=== PATIENT | female | born 1985 | race Caucasian/White ===

== ENCOUNTER → 2022-02-26 11:37 | Outpatient (BNVA) | payer MEDICAID, SELFPAY | PROVIDERS: Visit Provider Nurse Practitioner Family | DX: N30.90 Cystitis, unspecified without hematuria (principal) | CPT/HCPCS: 81000; 87086 ==

== ENCOUNTER → 2022-03-17 09:18 | Outpatient (BNVA) | payer MEDICAID, SELFPAY | PROVIDERS: Visit Provider Family Medicine | DX: Z30.9 Encounter for contraceptive management, unspecified (principal); I10 Essential (primary) hypertension; J45.909 Unspecified asthma, uncomplicated; M76.32 Iliotibial band syndrome, left leg; M70.62 Trochanteric bursitis, left hip; Z86.39 Personal history of other endocrine, nutritional and metabolic disease; M79.7 Fibromyalgia; Z68.41 Body mass index [BMI] 40.0-44.9, adult | CPT/HCPCS: 80053; 80061; 84439; 84443; 85025; 86376 ==

== ENCOUNTER → 2022-04-14 09:05 | Outpatient (BNVA) | payer MEDICAID, SELFPAY | PROVIDERS: PCP Family Medicine; Visit Provider Nurse Practitioner Women's Health | DX: R10.2 Pelvic and perineal pain (principal); Z12.4 Encounter for screening for malignant neoplasm of cervix; N89.8 Other specified noninflammatory disorders of vagina; Z30.41 Encounter for surveillance of contraceptive pills | CPT/HCPCS: 87491; 87591; 87624; 87661 ==

== ENCOUNTER → 2022-04-29 14:31 | Outpatient (BNVA) | payer MEDICAID, SELFPAY | PROVIDERS: PCP Family Medicine; Visit Provider Nurse Practitioner Women's Health | DX: R10.2 Pelvic and perineal pain (principal); N85.4 Malposition of uterus | CPT/HCPCS: 76830 ==

== ENCOUNTER 2022-06-05 14:27 | Outpatient (CLI) | payer MEDICAID, SELFPAY ==
--- NOTE | 2022-06-05 14:35 | MM_ITS ---
WS: [id number] BILATERAL 3D TOMOSYNTHESIS DIGITAL SCREENING MAMMOGRAPHY WITH CAD CLINICAL INFORMATION: breast Ca screening HISTORY: Screening mammogram. Bilateral breast pain and soreness. COMPARISON: 2020 TECHNIQUE: Bilateral CC and MLO views. FINDINGS: Scattered fibroglandular densities bilaterally. No suspicious focal mass, asymmetry, calcifications, or architectural distortion. No evidence of malignancy. MM/[place] [id number] IMPRESSION: BI-RADS: 1-Negative FOLLOW UP: 1 Year Follow-up Recommend return to annual screening mammography.
== END 2022-06-05 14:28 | disposition home or self-care (01) ==
LOC: RAD 14:28
PROVIDERS: PCP Family Medicine; Visit Provider Family Medicine
DX: Z12.31 Encounter for screening mammogram for malignant neoplasm of breast (principal)
CPT/HCPCS: 77063; 77067

== ENCOUNTER → 2022-07-12 10:23 | Outpatient (BNVA) | payer MEDICAID, SELFPAY | PROVIDERS: PCP Family Medicine; Visit Provider Registered Nurse Neonatal Intensive Care | DX: N39.0 Urinary tract infection, site not specified (principal) | CPT/HCPCS: 81000; 87077; 87086; 87184 ==

== ENCOUNTER → 2022-07-21 09:10 | Outpatient (BNVA) | payer MEDICAID, SELFPAY | PROVIDERS: PCP Family Medicine; Visit Provider Family Medicine | DX: R30.0 Dysuria (principal); R73.03 Prediabetes; B37.9 Candidiasis, unspecified; E06.3 Autoimmune thyroiditis; R10.2 Pelvic and perineal pain; I10 Essential (primary) hypertension; M79.7 Fibromyalgia; M54.2 Cervicalgia | CPT/HCPCS: 81000; 83036 ==

== ENCOUNTER 2022-10-10 07:56 | Outpatient (CLI) | payer MEDICAID, SELFPAY ==
--- NOTE | 2022-10-10 08:15 | US_ITS ---
WS: [id number] THYROID ULTRASOUND HISTORY: nodules COMPARISON: None available. Right lobe: 2.9 cm x 2.5 cm x 6.7 cm (w x ap x l). Volume: 25.0 cm3. Enlarged heterogeneous thyroid gland with multiple nodules. These nodules are diffuse and several are indistinct. There is increased vascularity throughout the gland. There is a hyperechoic nodule in th e mid gland measuring 9 x 8 x 9 mm. There is a more hypoechoic nodule towards the RIGHT isthmus measu ring 9 x 6 x 10 mm. These nodules have more benign features and malignant. There are a few scattered echogenic foci throughout the heterogeneous portion of the gland. Left lobe: 2.1 cm x 2.0 cm x 6.3 cm (w x ap x l). Volume: 13.9 cm3. Mildly enlarged heterogeneous gland mild increased vascularity. There is a single hypoechoic nodule i n the mid gland measuring 5 x 3 x 6 mm. Isthmus: 0.6 cm. US/US thyroid [id number] IMPRESSION: 1. Diffusely enlarged heterogeneous gland with increased vascularity suggestin g Carol's thyroiditis. There are several nodules noted bilaterally but thes e are 10 mm or less. Scattered hyperechoic foci throughout the RIGHT thyroid bu t these are not contained within nodules. 2. Recommend continue close serial ultrasound and clinical evaluation. 3. As per history patient's undergone a prior thyroid biopsy. That was not bhakti ilable for review at [facility]. Review of prior imaging studies would be most helpful to evaluate for long-term stability.
== END 2022-10-10 07:57 | disposition home or self-care (01) ==
PROVIDERS: PCP Family Medicine; Visit Provider Internal Medicine
DX: E06.3 Autoimmune thyroiditis (principal)
CPT/HCPCS: 76536

== ENCOUNTER 2022-11-16 07:18 | Outpatient (CLI) | payer MEDICAID, SELFPAY ==
[2022-11-16 08:03] LABS: Free T4 Free Thyroxine 1.14 ng/dL (0.82-1.77); Thyroid Stimulating Hormone 2.41 uIU/mL (0.27-4.20)
[2022-11-16 08:09] LABS: Estmated Average Glucose 114; Hemoglobin A1C 5.6 % (4.0-6.0)
[2022-11-20 04:00] LABS: TSH Receptor Binding Antibody <1.00 IU/L (< OR = 2.00)
== END 2022-11-16 07:19 | disposition home or self-care (01) ==
LOC: LAB 07:19
PROVIDERS: PCP Family Medicine; Visit Provider Internal Medicine
DX: E06.3 Autoimmune thyroiditis (principal)
CPT/HCPCS: 36415; 83036; 83516; 84439; 84443

== ENCOUNTER → 2022-11-26 08:52 | Outpatient (BNVA) | payer MEDICAID, SELFPAY | PROVIDERS: PCP Family Medicine; Visit Provider Family Medicine | DX: R10.2 Pelvic and perineal pain (principal); R30.0 Dysuria; B37.9 Candidiasis, unspecified | CPT/HCPCS: 81000 ==

== ENCOUNTER 2023-05-23 09:25 | Outpatient (CLI) | payer MEDICAID, SELFPAY ==
[2023-05-23 10:05] LABS: Free T4 Free Thyroxine 1.16 ng/dL (0.82-1.77); Thyroid Stimulating Hormone 1.79 uIU/mL (0.27-4.20)
== END 2023-05-23 09:26 | disposition home or self-care (01) ==
PROVIDERS: PCP Family Medicine; Visit Provider Internal Medicine
DX: E06.3 Autoimmune thyroiditis (principal)
CPT/HCPCS: 36415; 84439; 84443

== ENCOUNTER 2023-05-27 06:01 | Outpatient (CLI) | payer MEDICAID, SELFPAY ==
--- NOTE | 2023-05-27 06:15 | US_ITS ---
WS: [id number] THYROID ULTRASOUND HISTORY: fady's disease COMPARISON: 10/10/2022 Right lobe: 3.6 cm x 2.2 cm x 6.4 cm (w x ap x l). Volume: 26.1 cm3. Enlarged very heterogeneous thyroid with multiple small hypoechoic nodules in fibrous echogenic septa . There is mild increased vascularity. Hyperechoic nodule in the mid gland is well-circumscribed jackelyn uring 0.9 x 0.9 x 1.0 cm. Not changed since the prior exam. Additional cystic nodule toward the mid m edial gland measures 1.2 x 0.8 x 1.2 cm. These nodules are not increasing in size. There is still inc reased vascularity throughout the gland. Left lobe: 2.5 cm x 2.0 cm x 6.4 cm (w x ap x l). Volume: 16.6 cm3. Moderately enlarged thyroid with increased vascularity and heterogeneity. There are multiple small hy poechoic nodules. Isthmus: 0.3 cm. IMPRESSION: 1. Enlarged heterogeneous gland with increased vascularity. 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 2. TI-RADS 3: Hyperechoic nodule in the mid RIGHT gland. TI-RADS criteria does not suggest further ev aluation unless greater than 1.5 cm. Benign in appearance.
== END 2023-05-27 06:02 | disposition home or self-care (01) ==
LOC: RAD 06:01
PROVIDERS: PCP Family Medicine; Visit Provider Internal Medicine
DX: E06.3 Autoimmune thyroiditis (principal)
CPT/HCPCS: 76536

== ENCOUNTER 2023-11-06 16:10 | Outpatient (CLI) | payer MEDICAID, SELFPAY ==
[2023-11-06 17:26] LABS: Free T4 Free Thyroxine 1.04 ng/dL (0.82-1.77); Thyroid Stimulating Hormone 2.47 uIU/mL (0.27-4.20)
[2023-11-09 01:40] LABS: T3 Total 116 ng/dL (76-181)
== END 2023-11-06 16:11 | disposition home or self-care (01) ==
PROVIDERS: PCP Family Medicine; Visit Provider Internal Medicine
DX: E06.3 Autoimmune thyroiditis (principal)
CPT/HCPCS: 36415; 84439; 84443; 84480

== ENCOUNTER → 2023-12-20 13:46 | Outpatient (BNVA) | payer MEDICAID, SELFPAY | PROVIDERS: PCP Family Medicine; Visit Provider Nurse Practitioner | DX: E04.2 Nontoxic multinodular goiter (principal); E06.3 Autoimmune thyroiditis; Z80.8 Family history of malignant neoplasm of other organs or systems; R73.03 Prediabetes | CPT/HCPCS: 83036; 84439; 84443 ==

== ENCOUNTER → 2023-12-23 16:35 | Outpatient (BNVA) | payer MEDICAID, SELFPAY | PROVIDERS: PCP Family Medicine; Visit Provider Nurse Practitioner | DX: R00.2 Palpitations (principal) | CPT/HCPCS: 80053; 84439; 84443; 85007; 85027 ==

== ENCOUNTER 2024-02-14 08:50 | Emergency (ER) | payer MEDICAID, SELFPAY ==
[2024-02-14 08:56] VITALS: BP 129/85; PULSE 106; RESP 16; TEMP 36.7; O2SAT 100; BMI 35.1
[2024-02-14 10:11] LABS: Basophils % 0.3 %; Eosinophils # 0.1 10^3/uL (0.0-0.8); Hematocrit 41.1 % (36-47); Lymphocytes # 2.6 10^3/uL (0.8-4.8); Lymphocytes % 34.8 %; Mean Corpuscular HGB Conc 33.1 g/dL (30-55); Mean Corpuscular Hemoglobin 29.2 pg (27-33); Mean Corpuscular Volume 88.2 fl (85-98); Mean Platelet Volume 10.6 fL (7.4-10.4); Monocytes # 0.5 10^3/uL (0.2-0.9); Monocytes % 7.2 %; Neutrophils # 4.14 10^3/uL (1.8-7.7); Neutrophils % 56.6 %; Nucleated Red Blood Cells % 0 %; Platelet Count 285 10^3/cmm (157-399); Red Blood Count 4.66 10^6/uL (3.85-5.65); Red Cell Distribution Width 12.4 % (12.1-15.1); White Blood Count 7.32 10^3/uL (3.29-11.43)
[2024-02-14 10:25] LABS: HCG, Serum Qual Negative (Negative)
[2024-02-14 10:28] LABS: Alanine Aminotransferase 11 U/L (0-33); Albumin Level 4.2 g/dL (3.5-5.2); Alkaline Phosphatase 75 U/L (35-105); Anion Gap 15.3 (5-19); Aspartate Amino Transferase 13 U/L (0-32); Blood Urea Nitrogen 11 mg/dL (6-20); Carbon Dioxide 26 mmol/L (22-29); Chloride 100 mmol/L (98-107); Creatinine Clr Calc Pharmacy 110.1719; Globulin 3.2 g/dL (1.3-4.6); Glomerular Filtration Rate 80.7 mL/min (90-130); Glucose 91 mg/dL (65-115); Lipase 24 U/L (13-60); Osmolality Calculated 283 mOsm/kg (285-295); Potassium 4.3 mmol/L (3.5-5.1); Sodium 137 mmol/L (136-145); Total Bilirubin 0.2 mg/dL (0.15-1.2); Total Protein 7.4 g/dL (6.6-8.7)
== END 2024-02-14 12:03 | disposition left against medical advice (07) ==
PROVIDERS: Physician Assistant; Emergency Provider Family Medicine; PCP Family Medicine
DX: Z53.21 Procedure and treatment not carried out due to patient leaving prior to being seen by health care provider (principal)
CPT/HCPCS: 36415; 80053; 83690; 84703; 85025

== ENCOUNTER 2024-02-21 15:16 | Outpatient (CLI) | payer MEDICAID, SELFPAY ==
--- NOTE | 2024-02-21 15:45 | USR_ITS ---
PROCEDURE INFORMATION: Exam: US Abdomen, Limited; Right Upper Quadrant Exam date and time: 02/21/2024 3:30 PM Age: 38 years old Clinical indication: Abdominal pain; Localized; Right upper quadrant (ruq); Additional info: Ruq pain TECHNIQUE: Imaging protocol: Real time ultrasound of the abdomen with image documentation. Limited exam focused on the right upper quadrant. COMPARISON: US transvaginal [id number] 04/29/2022 2:44 PM FINDINGS: Liver: Visualized hepatic parenchyma is mildly echogenic. The liver contour is grossly smooth. Gallbladder: There is cholelithiasis. No significant wall thickening or edema to suggest cholecystitis.The clinical trial educator reports a negative sonographic Tucker's sign. Biliary ducts: The CBD is nondilated, measuring 4 mm. No sonographic evidence of intraductal stone. Pancreas: The pancreas is mostly obscured bowel gas. Visualized portions are grossly unremarkable. Right kidney: The right kidney is normal in echotexture and measures 10.3 cm in length. No evidence of hydronephrosis. US/US gall bladder [id number] IMPRESSION: 1. Cholelithiasis without sonographic evidence of acute cholecystitis.
== END 2024-02-21 15:17 | disposition home or self-care (01) ==
LOC: RAD 15:17
PROVIDERS: PCP Family Medicine
DX: K80.20 Calculus of gallbladder without cholecystitis without obstruction (principal); R10.11 Right upper quadrant pain
CPT/HCPCS: 76705

== ENCOUNTER 2024-04-20 09:22 | Outpatient (CLI) | payer MEDICAID, SELFPAY ==
--- NOTE | 2024-04-20 09:30 | US_ITS ---
WS: [id number] THYROID ULTRASOUND HISTORY: multiple thyroid nodules COMPARISON: 05/27/2023, 10/10/2022 Right lobe: 2.9 cm x 2.7 cm x 6.6 cm (w x ap x l). Volume: 24.4 cm3. Enlarged heterogeneous nodular thyroid lobe. Increased vascularity throughout the gland. The hyperech oic nodule described on the prior examination measures 0.9 x 1.0 x 1.0 cm and has not increased in si ze. Left lobe: 2.4 cm x 2.3 cm x 5.9 cm (w x ap x l). Volume: 15.5 cm3. Enlarged heterogeneous LEFT lobe. Mild increased vascularity. Isthmus: 0.6 cm. US/US thyroid [id number] IMPRESSION: 1. Thyroid ultrasound is similar to the study of 05/27/2023. Suspect Carol 's thyroiditis. 2. There are no new or enlarging thyroid nodules for which biopsy is recommend ed.
== END 2024-04-20 09:23 | disposition home or self-care (01) ==
LOC: RAD 09:22
PROVIDERS: PCP Family Medicine; Visit Provider Internal Medicine
DX: E04.2 Nontoxic multinodular goiter (principal); Z80.8 Family history of malignant neoplasm of other organs or systems; E06.3 Autoimmune thyroiditis
CPT/HCPCS: 76536

== ENCOUNTER 2024-05-18 11:23 | Outpatient (CLI) | payer MEDICAID, SELFPAY ==
--- NOTE | 2024-05-18 11:30 | MM_ITS ---
WS: [id number] BILATERAL 3D TOMOSYNTHESIS DIGITAL DIAGNOSTIC MAMMOGRAPHY WITH CAD CLINICAL INFORMATION: breast pain, R HISTORY: RIGHT breast pain COMPARISON: 06/05/2022 TECHNIQUE: Bilateral CC, MLO, and ML views. FINDINGS: Scattered fibroglandular densities bilaterally. Areas of interest lower inner RIGHT breast extending to the sternum. Normal underlying parenchymal tissue. Ultrasound of this area is pending. No suspicious findings in the LEFT breast. ULTRASOUND BREAST RIGHT TECHNIQUE: Ultrasound right breast focused area of concern. CLINICAL INFORMATION: breast pain, R FINDINGS: Ultrasound RIGHT breast area of interest. Ultrasound performed at the 2 o'clock position patient dire cted. Normal underlying parenchymal tissue. No cystic or solid lesions. No suspicious lesions to targ et for biopsy. Findings are benign. MM/MM diag BI tomosynthesis [id number] IMPRESSION: DENSITY: There are scattered areas of fibroglandular density. BI-RADS: 2 - Benign. FOLLOW UP: Age 41 Recommend annual screening mammography age 41 unless otherwise warranted
--- NOTE | 2024-05-18 12:04 | US_ITS ---
WS: [id number] BILATERAL 3D TOMOSYNTHESIS DIGITAL DIAGNOSTIC MAMMOGRAPHY WITH CAD CLINICAL INFORMATION: breast pain, R HISTORY: RIGHT breast pain COMPARISON: 06/05/2022 TECHNIQUE: Bilateral CC, MLO, and ML views. FINDINGS: Scattered fibroglandular densities bilaterally. Areas of interest lower inner RIGHT breast extending to the sternum. Normal underlying parenchymal tissue. Ultrasound of this area is pending. No suspicious findings in the LEFT breast. ULTRASOUND BREAST RIGHT TECHNIQUE: Ultrasound right breast focused area of concern. CLINICAL INFORMATION: breast pain, R FINDINGS: Ultrasound RIGHT breast area of interest. Ultrasound performed at the 2 o'clock position patient dire cted. Normal underlying parenchymal tissue. No cystic or solid lesions. No suspicious lesions to targ et for biopsy. Findings are benign. US/US breast RT limited* [id number] IMPRESSION: DENSITY: BI-RADS: 2 - Benign. FOLLOW UP: Age 41 Recommend annual screening mammography age 41 unless otherwise warranted
== END 2024-05-18 11:24 | disposition home or self-care (01) ==
PROVIDERS: PCP Family Medicine; Visit Provider Family Medicine
DX: N64.4 Mastodynia (principal); R92.323 Mammographic fibroglandular density, bilateral breasts
CPT/HCPCS: 76642; 77062; G0279

== ENCOUNTER 2024-07-01 02:46 | Emergency (ER) | payer MEDICAID, SELFPAY ==
[2024-07-01 02:54] VITALS: BP 148/92; PULSE 111; RESP 18; TEMP 36.9; O2SAT 100; BMI 34.9
--- NOTE | 2024-07-01 03:04 | ECG_ITS ---
[facility] Test Date: 2024-07-01 Pat Name: Tia Soni Department: Room: Gender: Female Baker Doughnut: : 1985 Requested By: ARTEM Etienne Order Number: [id number] Kenneth MD: Jeremiah Wray M.D. Measurements Intervals [place] Rate: 124 P: 65 MN: 147 QRS: 31 QRSD: 78 T: 61 QT: 336 QTc: 483 Interpretive Statements SINUS TACHYCARDIA NONSPECIFIC ST & T-WAVE ABNORMALITY No previous ECG available for comparison Electronically Signed On 07-01-2024 23:05:37 ACTUARIAL CLERK by Jeremiah Wray M.D. [email or web address]
--- NOTE | 2024-07-01 03:04 | XRR_ITS ---
PROCEDURE INFORMATION: Exam: XR Chest Exam date and time: 07/01/2024 3:34 AM Age: 38 years old Clinical indication: Chest pressure; Patient HX: C/O chest pain; Additional info: Cp TECHNIQUE: Imaging protocol: Radiologic exam of the chest. Views: 1 view. COMPARISON: No relevant prior studies available. FINDINGS: Lungs: Unremarkable. No consolidation. Pleural spaces: Unremarkable. No pleural effusion. No pneumothorax. Heart/Mediastinum: Unremarkable. No cardiomegaly. Bones/joints: Unremarkable. XR/XR chest 1V portable [id number] IMPRESSION: No acute findings.
[2024-07-01 03:16] VITALS: BP 141/92; PULSE 94; O2SAT 100
--- NOTE | 2024-07-01 03:17 | ED_ITS ---
HPI - Chest Pain 2 General: Chief Complaint: Chest Pain Stated Complaint: R side Pain chest pain Time Seen by Provider: 07/01/24 03:15 History of Present Illness: Patient presents with right-sided chest and back pain that started approximately 12-13 hours ago. The pain is described as having a contractile quality, with periods of worsening followed by partial relief. Associated symptoms include nausea and notable tremors due to pain. Patient reports history of gallstones but states current pain differs from previous gallbladder episodes. Denies fever. No alcohol or drug use reported. Past Medical History: Significant for pancreatitis and thyroid condition (reportedly normal for past couple of years). Associated symptoms: Deny dyspnea or palpitations Related Data Previous Rx's Medication Instructions Recorded albuterol sulfate 90 mcg/actuation 1 inh inhalation QID PRN shortness 03/17/22 aerosol inhaler of breath or wheezing #8.5 grams drospirenone (contraceptive) 4 mg 1 tab PO DAILY #28 tabs 03/03/24 (28) tablet (Slynd) furosemide 20 mg tablet 20 mg PO QAM PRN lower extremity 04/20/24 edema #30 tabs liraglutide 0.6 mg/0.1 mL (18 mg/3 1.8 mg (0.3 mL) SUBCUT DAILY 30 04/20/24 mL) subcutaneous pen injector days #27 mL (Victoza 3-Watson) fluconazole 100 mg tablet 100 mg PO DAILY #1 tab 05/22/24 (Diflucan) Allergies Allergy/AdvReac Type Severity Reaction Status Date / Time No Known Allergies Allergy Verified 05/22/24 15:28 Review of Systems 2 Card: Reports: chest pain; Denies: palpitations, irregular heart rhythm, swelling of feet/ankles, lightheadedness, dyspnea on exertion or orthopnea Resp: Denies: dyspnea or productive cough PFSH ED 2 PFSH: Medical History No pertinent past medical history neghx: dm,dvt/pe PCP: Zachary Hypertension Asthma Fibromyalgia H/O Carol thyroiditis (~2019) Newly moved here; set up with [facility] Surgical History H/O LEEP (~2006) Family History Mother Cancer thyroid Hypertension Stroke Heart disease Thyroid disease Grandfather Cancer lung Hypertension Grandmother Diabetes Hypertension Father Hypertension Brother No problems noted. Denies family history of Colon cancer Ovarian cancer Hyperlipidemia Breast cancer Uterine cancer Social History Smoking and tobacco/nicotine status: unknown if used tobacco/nicotine Alcohol intake: never Substance/Drug Use: never Do you think of yourself as: Straight/Heterosexual Female Reproductive History: Para: 4 Spontaneous abortions: No Physical Exam 2 Const: COMMON NORMALS: no acute distress, patient oriented x3, alert and well nourished HENMT: COMMON NORMALS: normocephalic HEAD & SCALP: normocephalic Eye: COMMON NORMALS: EOMs intact bilaterally Neck/C-Spine: COMMON NORMALS: full ROM, no lymphadenopathy, supple, no meningeal signs, no JVD and Thyroid normal THYROID: Thyroid normal Chest: COMMONS NORMALS: normal inspection of the chest and normal palpation of entire chest wall Resp: COMMON NORMALS: normal respiratory effort, No retractions, No use of accessory muscles and clear to auscultation bilaterally AUSCULTATION: clear to auscultation bilaterally Cardio: COMMON NORMALS: no JVD GI: COMMON NORMALS: Normal to inspection, nondistended, normoactive bowel sounds present, Soft to palpation, non-tender, No hepatosplenomegaly present, no masses and no bruits PALPATION: Yes Soft to palpation and Yes No hepatosplenomegaly present : COMMON NORMALS: Yes no CVA tenderness BLADDER/KIDNEY EXAM: Yes no CVA tenderness Back/Pelvis: COMMON NORMALS: no CVA tenderness Extremity: COMMON NORMALS: normal to inspection, full ROM, capillary refill normal, no joint enlargement, no clubbing, cyanosis or edema, no calf tenderness and no pedal edema Neuro: COMMON NORMALS: patient oriented x3 SENSORIUM/ORIENTATION: Yes alert MENINGEAL SIGNS: Yes no meningeal signs Skin: COMMON NORMALS: no rashes or lesions noted, turgor normal and no jaundice GENERAL SKIN EXAM: no rashes or lesions noted and turgor normal Course 2 ED course: Patient's heart rate was normal she felt significantly better after intervention the emergency department her symptoms resolved. Workup including troponin was negative. She had normal vital signs at 4:00 and was discharged home in much improved condition after being ruled out for serious etiology of her symptoms. Vital Signs: Vital signs: Vital Signs Temperature 98.4 F 07/01/24 02:54 Pulse Rate 89 07/01/24 04:13 Respiratory Rate 20 H 07/01/24 03:51 Blood Pressure 119/94 07/01/24 04:13 Pulse Oximetry 97 07/01/24 04:13 Oxygen Delivery Me thod Room Air 07/01/24 03:51 MDM - Chest Pain Medical Decision Making Discussed differential diagnosis recommend full workup including to evaluate for acute coronary syndrome, arrhythmia or other more serious etiology. She is not hypoxic I think pulmonary embolism is less likely. Lab Data 07/01/24 03:00 07/01/24 03:00 Radiology Impressions Chest X-Ray 07/01/24 03:04 IMPRESSION: No acute findings. Laboratory Results WBC 9.85 10^3/uL (3.29-11.43) 07/01/24 03:00 RBC 4.30 10^6/uL (3.85-5.65) 07/01/24 03:00 Hgb 12.60 g/dL (11.27-16.99) 07/01/24 03:00 Hct 38.0 % (36-47) 07/01/24 03:00 MCV 88.4 fl (85-98) 07/01/24 03:00 MCH 29.3 pg (27-33) 07/01/24 03:00 MCHC 33.2 g/dL (30-55) 07/01/24 03:00 RDW 12.7 % (12.1-15.1) 07/01/24 03:00 Plt Count 282 10^3/cmm (157-399) 07/01/24 03:00 MPV 10.6 fL (7.4-10.4) H 07/01/24 03:00 Neut % (Auto) 52.7 % 07/01/24 03:00 Lymph % (Auto) 36.9 % 07/01/24 03:00 [place] % (Auto) 8.4 % 07/01/24 03:00 Eos % (Auto) 1.5 % 07/01/24 03:00 Baso % (Auto) 0.3 % 07/01/24 03:00 Neut # (Auto) 5.19 10^3/uL (1.8-7.7) 07/01/24 03:00 Lymph # (Auto) 3.6 10^3/uL (0.8-4.8) 07/01/24 03:00 [place] # (Auto) 0.8 10^3/uL (0.2-0.9) 07/01/24 03:00 Eos # (Auto) 0.2 10^3/uL (0.0-0.8) 07/01/24 03:00 Baso # (Auto) 0.0 10^3/uL (0.0-0.1) 07/01/24 03:00 Nucleated RBC % (auto) 0 % 07/01/24 03:00 Nucleated RBCs # 0.0 /100WBC 07/01/24 03:00 Sodium 139 mmol/L (136-145) 07/01/24 03:00 Potassium 4.0 mmol/L (3.5-5.1) 07/01/24 03:00 Chloride 106 mmol/L (98-107) 07/01/24 03:00 Carbon Dioxide 23 mmol/L (22-29) 07/01/24 03:00 Anion Gap 14.0 (5-19) 07/01/24 03:00 BUN 9 mg/dL (6-20) 07/01/24 03:00 Creatinine 0.7 mg/dL (0.5-0.9) 07/01/24 03:00 GFR Calculation 94.2 mL/min (90-130) 07/01/24 03:00 Glucose 112 mg/dL (65-115) 07/01/24 03:00 Calculated Osmolality 287 mOsm/kg (285-295) 07/01/24 03:00 Calcium 9.4 mg/dL (8.5-10.5) 07/01/24 03:00 Troponin T Baseline < 6 ng/L (0-10) 07/01/24 03:00 TSH 5.86 uIU/mL (0.27-4.20) H 07/01/24 03:00 Urine Opiates Screen Negative ng/mL (Negative) 07/01/24 03:42 Ur Barbiturates Screen Negative ng/mL (Negative) 07/01/24 03:42 Ur Phencyclidine Scrn Negative ng/mL (Negative) 07/01/24 03:42 Ur Amphetamines Screen Negative ng/mL (Negative) 07/01/24 03:42 U Benzodiazepines Scrn Negative ng/mL (Negative) 07/01/24 03:42 Urine Cocaine Screen Negative ng/mL (Negative) 07/01/24 03:42 U Marijuana (THC) Screen Negative ng/mL (Negative) 07/01/24 03:42 All radiology interpretation(s) finalized by discharge Discharge Plan Discharge Patient Disposition: Home Clinical Impression: Atypical chest pain Condition: Stable Prescriptions: No Action furosemide 20 mg tablet 20 mg PO QAM PRN (Reason: lower extremity edema) Qty: 30 0RF Victoza 3-Watson 0.6 mg/0.1 mL (18 mg/3 mL) pen injector 1.8 mg SUBCUT DAILY 30 Days Qty: 27 4RF Hold Instructions: Home Medication placed on hold at Doctor's office fluconazole [Diflucan] 100 mg tablet 100 mg PO DAILY Qty: 1 1RF albuterol sulfate 90 mcg/actuation HFA aerosol inhaler 1 inh inhalation QID PRN (Reason: shortness of breath or wheezing) Qty: 8.5 5RF Slynd 4 mg (28) tablet 1 tab PO DAILY Qty: 28 3RF Discharge Orders: Discharge ED (Routine); Ordered 07/01/24 Ordered By: Jose Angel Holt Referrals: Ender Sharma MD [Primary Care Provider] - Discharge Diet: Advance as tolerated Discharge Activity: Resume usual activity Patient Instructions: Opioid Safety, Pain Management Activity Restrictions/Additional Instructions: 1. Call PCP on Wednesday if still with symptoms. Return to ED for worsening symptoms. Coding Level of Care Code ED Associate Professor Of Archaeology for Shanice Medrano
[2024-07-01 03:19] LABS: Basophils % 0.3 %; Eosinophils # 0.2 10^3/uL (0.0-0.8); Eosinophils % 1.5 %; Lymphocytes # 3.6 10^3/uL (0.8-4.8); Lymphocytes % 36.9 %; Mean Corpuscular HGB Conc 33.2 g/dL (30-55); Mean Corpuscular Hemoglobin 29.3 pg (27-33); Mean Corpuscular Volume 88.4 fl (85-98); Mean Platelet Volume 10.6 fL (7.4-10.4); Monocytes # 0.8 10^3/uL (0.2-0.9); Monocytes % 8.4 %; Neutrophils # 5.19 10^3/uL (1.8-7.7); Neutrophils % 52.7 %; Nucleated Red Blood Cells % 0 %; Platelet Count 282 10^3/cmm (157-399); Red Cell Distribution Width 12.7 % (12.1-15.1); White Blood Count 9.85 10^3/uL (3.29-11.43)
[2024-07-01 03:38] LABS: Troponin(5th) Baseline < 6 ng/L (0-10)
[2024-07-01] MEDS: LORazepam 2 mg/mL INJ 1 mL 1 MG IVP (03:38)
[2024-07-01 03:42] LABS: Blood Urea Nitrogen 9 mg/dL (6-20); Calcium 9.4 mg/dL (8.5-10.5); Carbon Dioxide 23 mmol/L (22-29); Chloride 106 mmol/L (98-107); Creatinine Clr Calc Pharmacy 125.5953; Glomerular Filtration Rate 94.2 mL/min (90-130); Glucose 112 mg/dL (65-115); Osmolality Calculated 287 mOsm/kg (285-295); Sodium 139 mmol/L (136-145)
[2024-07-01 03:51] VITALS: PULSE 96; RESP 20; O2SAT 98
[2024-07-01 04:04] LABS: Amphetamines Screen Urine Negative (Negative); Barbiturates Screen Urine Negative (Negative); Benzodiazepines Screen Urine Negative (Negative); Cocaine Screen Urine Negative (Negative); Opiate Screen Urine Negative (Negative); PCP Screen Urine Negative (Negative); THC Screen Urine Negative (Negative)
[2024-07-01 04:13] VITALS: BP 119/94; PULSE 89; O2SAT 97
[2024-07-01 04:14] LABS: Thyroid Stimulating Hormone 5.86 uIU/mL (0.27-4.20)
[2024-07-01 05:16] VITALS: BP 115/89; PULSE 98; O2SAT 98
== END 2024-07-01 05:09 | disposition home or self-care (01) ==
PROVIDERS: Orthopaedic Surgery Sports Medicine; Emergency Provider Family Medicine; PCP Family Medicine
DX: R07.89 Other chest pain (principal); I10 Essential (primary) hypertension
CPT/HCPCS: 71045; 80048; 80306; 84443; 84484; 85025; 93005; 96374; 99285; J2060

== ENCOUNTER → 2024-08-05 10:25 | Outpatient (BNVA) | payer MEDICAID, SELFPAY | PROVIDERS: PCP Family Medicine | DX: J02.9 Acute pharyngitis, unspecified (principal); R09.82 Postnasal drip | CPT/HCPCS: 87880 ==

== ENCOUNTER → 2024-09-24 10:47 | Outpatient (BNVA) | payer MEDICAID, SELFPAY | PROVIDERS: PCP Family Medicine; Visit Provider Emergency Medicine | DX: R39.9 Unspecified symptoms and signs involving the genitourinary system (principal) | CPT/HCPCS: 81000 ==

== ENCOUNTER 2024-10-12 11:59 | Outpatient (CLI) | payer MEDICAID, SELFPAY ==
[2024-10-12] MEDS: iohexol 350 mg/mL 500 mL Btl (per mL) PO (12:11)
--- NOTE | 2024-10-12 13:00 | CT_ITS ---
WS: [id number] CT ABDOMEN AND PELVIS NONCONTRAST HISTORY: hernia concern TECHNIQUE: Imaging performed through the abdomen and pelvis. Coronal and sagittal reformats are submitted. All CT scans at [facility] use at least one of these dose optimization techniques: automated exposure control; mA and/or kV adjustment per patient size (includes targeted exams where dose is matched to clinical indication); or iterative reconstruction. DLP: 751.63 mGy.cm COMPARISON: None available. Lower thorax: Lung bases are clear. Visualized heart is normal. No hiatal hernia. Liver: Normal liver. Gallbladder: Contracted gallbladder with variable attenuation. Heterogeneous stones within the gallbladder lumen. No adjacent inflammation. Pancreas: Normal size and attenuation. Normal pancreatic duct. No pancreatitis or mass. Spleen: Normal. Adrenal glands: Normal. No mass. Right kidney: Normal size kidney with no mass or hydronephrosis. Left kidney: Normal size kidney with no mass or hydronephrosis. Aorta: Normal abdominal aorta, no aneurysm or atherosclerosis. No free fluid, intraperitoneal air or significant lymphadenopathy. GI tract: Normal noncontrast imaging of the stomach, small bowel and colon. No obstruction or wall thickening. Normal appendix. Abdominal wall: Small umbilical hernia contains fat only. Pelvis: No free fluid or adenopathy. Uterus is midline. No adnexal masses. Ovaries are unremarkable. Osseous structures: Unremarkable. CT/CT abdomen pelvis wo con [id number] IMPRESSION: 1. Small umbilical hernia contains fat only. 2. Contracted gallbladder with variable density stones. Consider RIGHT upper q uadrant ultrasound evaluation of the gallbladder. Patient should be fasting for a minimum of 6 hours. 3. No GI tract obstruction. 4. Normal appendix.
== END 2024-10-12 12:00 | disposition home or self-care (01) ==
PROVIDERS: PCP Family Medicine; Visit Provider Family Medicine
DX: R10.9 Unspecified abdominal pain (principal); K42.9 Umbilical hernia without obstruction or gangrene; K80.20 Calculus of gallbladder without cholecystitis without obstruction; R93.3 Abnormal findings on diagnostic imaging of other parts of digestive tract
CPT/HCPCS: 74176

== ENCOUNTER 2024-10-17 07:36 | Outpatient (CLI) | payer MEDICAID, SELFPAY ==
[2024-10-17 08:52] LABS: Estmated Average Glucose 97
[2024-10-17 09:01] LABS: Free T4 Free Thyroxine 1.05 ng/dL (0.82-1.77); T3 Free 2.7 PG/ML (2.0-4.4)
[2024-10-17 09:41] LABS: Thyroid Stimulating Hormone 2.55 uIU/mL (0.27-4.20)
== END 2024-10-17 07:37 | disposition home or self-care (01) ==
LOC: LAB 07:37
PROVIDERS: PCP Family Medicine; Visit Provider Internal Medicine
DX: E04.2 Nontoxic multinodular goiter (principal); E06.3 Autoimmune thyroiditis; Z80.8 Family history of malignant neoplasm of other organs or systems; R73.03 Prediabetes
CPT/HCPCS: 36415; 83036; 83516; 84439; 84443; 84481

== ENCOUNTER 2024-10-20 11:24 | Outpatient (CLI) | payer MEDICAID, SELFPAY ==
--- NOTE | 2024-10-20 11:45 | US_ITS ---
WS: [id number] RIGHT UPPER QUADRANT ULTRASOUND HISTORY: abdominal pain COMPARISON: 02/21/2024 Liver: 14.4 cm in length. Normal size liver and echogenicity. No bile duct dilatation or mass. Portal Vein: Normal hepatopetal flow with monophasic waveform. Gallbladder: Normally distended gallbladder with stones. Numerous stones within the gallbladder. No pericholecystic fluid or gallbladder wall thickening. CBD: 0.4 cm Pancreas: Limited. Right kidney: 10.9 cm in length. Normal size and echogenicity. No hydronephrosis or mass. Aorta and IVC: Unremarkable abdominal aorta and IVC. No ascites. US/US gall bladder [id number] IMPRESSION: 1. Numerous gallstones are identified. Gallbladder is not as contracted as it was on the recent CT. No evidence for acute cholecystitis but there are numerou s stones present. 2. Normal common bile duct.
== END 2024-10-20 11:25 | disposition home or self-care (01) ==
LOC: RAD 11:25
PROVIDERS: PCP Family Medicine; Visit Provider Surgery
DX: R10.9 Unspecified abdominal pain (principal); K80.20 Calculus of gallbladder without cholecystitis without obstruction
CPT/HCPCS: 76705

== ENCOUNTER 2024-11-09 11:16 | Day surgery (SDC) | payer MEDICAID, SELFPAY ==
[2024-11-09] VITALS (13 sets, daily range): BP systolic 102–150; BP diastolic 48–102; PULSE 71–92; RESP 14–18; TEMP 36.1–36.6; O2SAT 95–100; BMI 34.9
[2024-11-09 11:42] LABS: OR HCG Qualitative Urine Negative (Negative)
[2024-11-09] MEDS: sodium chloride 0.9% 1,000 ML 30 ML IV (11:54)
[2024-11-09] MEDS: scopolamine 1 mg PATCH 1 PATCH TRANSDERMA (11:57)
--- NOTE | 2024-11-09 12:02 | P.HPUD_ITS ---
Surgery/Procedure H&P Update DATE OF PROCEDURE: November 09, 2024 DATE H&P PERFORMED: 10/17/24 H&P UPDATE INFORMATION: I have reviewed H&P completed within last 30 days, I have examined patient prior to procedure, No changes to prior documentation, H&P is in [facility] EMR on date indicated and Risks and benefits of the procedure reviewed PLANNED PROCEDURE: Operation Date: 11/09/24 12:45 Proposed Procedures p Laparoscopic POSSIBLE OPEN Cholecystectomy 80110 K80.20(Not Applicable) - Harsha Ramos MD
--- NOTE | 2024-11-09 12:17 | P.ANESASSM_ITS ---
Pre-Anesthetic Assessment Height/Weight: Height 5 ft 5 in Weight 210 lb Temp Pulse Resp BP Pulse Ox O2 Del Method 97.8 F 87 17 150/102 100 Room Air 11/09/24 11:32 11/09/24 11:32 11/09/24 11:32 11/09/24 11:32 11/09/24 11:32 11/09/24 11:35 Preop Diagnosis: Chronic cholecystitis Operation Date: 11/09/24 12:45 Proposed Procedures p Laparoscopic POSSIBLE OPEN Cholecystectomy 57375 K80.20(Not Applicable) - Harsha Ramos MD Was Beta Luly taken within 24 hours: N/A Was Clonidine taken within 24 hours: N/A Last intake: Intake Last Liquid Date 11/08/24 Last Liquid Time 18:30 Last Solid Date 11/08/24 Last Solid Time 18:30 Social No alcohol and No tobacco Exam alert, oriented x 3, clear to auscultation bilaterally and regular rate & rhythm Airway Submandibular: within normal limits Cervical ROM: within normal limits Mallampati: Class III Dentition: full Anesthetic Plan ASA status: 3 Anesthesia: General Other: No prior issues with anesthesia NPO since yesterday evening History of asthma BMI 35 Carol thyroiditis, no meds for this. States that they are just monitoring her thyroid levels Denies any cardiac issues METs greater than 4 Plan for GETA Medications/Allergies Home Medications ?Medication ?Instructions ?Recorded ?Confirmed ?Last Taken ?Type albuterol sulfate 90 mcg/actuation 1 inh inhalation QI D PRN shortness 03/17/22 11/08/24 Unknown Rx aerosol inhaler of breath or wheezing #8.5 g jose angel drospirenone (contraceptive) 4 mg 1 tab PO DAILY #28 t abs 07/17/24 11/09/2409/29 Rx (28) tablet (Slynd) tirzepatide (weight loss) 2.5 2.5 mg (0.5 mL) SUBCUT . qweekly #2 09/26/24 11/08/24 Unknown Rx mg/0.5 mL subcutaneous pen mL injector (Zepbound) Allergies Allergy/AdvReac Type Severity Reaction Status Date / Time No Known Allergies Allergy Verified 10/17/24 08:11 Current Medications Generic Name Dose Route Start Last Admin Trade Name Freq PRN Reason Stop Dose Admin Sodium Chloride 1,000 mls @ 30 mls/hr 11/09/24 11:30 11/09/24 11:54 Sodium Chloride 0.9% IV 11/10/24 11:29 30 mls/hr .Q24H VINICIUS Administration PFSH Anesthesia Medical History No pertinent past medical history neghx: dm,dvt/pe PCP: Zachary Hypertension Asthma Fibromyalgia H/O Carol thyroiditis (~2019) Newly moved here; set up with [facility] Surgical History H/O LEEP (~2006) Family History Mother Cancer thyroid Hypertension Stroke Heart disease Thyroid disease Grandfather Cancer lung Hypertension Grandmother Diabetes Hypertension Father Hypertension Brother No problems noted. Denies family history of Colon cancer Ovarian cancer Hyperlipidemia Breast cancer Uterine cancer Social History Smoking and tobacco/nicotine status: never used tobacco/nicotine Alcohol intake: never Substance/Drug Use: never Do you think of yourself as: Straight/Heterosexual Female Reproductive History Para: 4 Spontaneous abortions: No
[2024-11-09] MEDS: ceFAZolin 2,000 mg SDV 2000 MG IVP (12:40)
[2024-11-09] MEDS: BUPivacaine 0.25% INJ 10 mL INJECTION (13:24)
[2024-11-09] MEDS: lidocaine-epi 1% 20 mL INJ 10 ML INJECTION (13:24)
--- NOTE | 2024-11-09 13:34 | P.OP_ITS ---
Operative Report Date of procedure: November 09, 2024 Pre-op diagnosis: Symptomatic cholelithiasis Post-op diagnosis: Same Post-op findings: Normal biliary anatomy Procedure done: Laparoscopic cholecystectomy Specimens removed/disposition: Gallbladder Surgeon: Harsha Ramos MD [employer]: ISAIAS [employer] STaff Estimated blood loss: 5 Complications: None apparent Brief History: 38-year-old female who presented to my office with symptomatic cholelithiasis. Per discussion we will resume benefits as documented in my preop note with side to proceed with laparoscopic possible open cholecystectomy. Procedure: Patient was brought into the OR, she was placed in a supine position. General anesthesia was given. The abdomen was prepped and draped in the usual sterile fashion. A timeout was conducted. I accessed the abdomen via a 5 mm Optiview port in the left upper quadrant. Initial pneumoperitoneum was obtained and no evidence of visceral injury during entry was noted. At 12 mm trocar was placed in the supraumbilical position under direct visualization. Additional 5 mm trocars were placed in the epigastrium right upper quadrant and right flank under direct visualization. The gallbladder was grasped from the fundus and retracted cephalad, I then grasped the infundibulum and retracted in the inferolateral direction exposing the hepatocystic triangle. The peritoneum anterior to the hepatocystic triangle was opened with electrocautery, I carried this opening in the medial and lateral direction to the edges of the liver and then on the sides of the gallbladder to allow for better exposure. With careful blunt dissection as well as electrocautery I was able to encircle the cystic duct and artery, I also elevated lower third of the gallbladder from the liver bed, thus creating a critical view of safety. The cystic duct and artery were double clipped proximally and single clipped distally and transected. The gallbladder was removed from the liver bed using electrocautery. The gallbladder was retrieved in an Endo Catch bag via the umbilical trocar site. The liver bed and clips were inspected the area was hemostatic, there was no evidence of bile leak the clips appeared to be in good position. The umbilical trocar was removed and umbilical trocar site was closed with a 0 Vicryl Dariusz- Scout suture passer under direct visualization. The epigastrium right upper quadrant right flank trocars were removed under direct visualization, the left upper quadrant trocar was used to evacuate the pneumoperitoneum and subsequently removed. Local anesthesia was infiltrated. Hemostasis was achieved from the trocar sites. The wounds were closed in layers using #3-0 Vicryl for the subcutaneous tissue #4 Monocryl for the skin. At the end of the procedure all counts were correct, the patient tolerated well the procedure was transferred to the PACU in stable condition.
[2024-11-09] MEDS: ondansetron 2 mg/ML SDV 2 mL 4 MG IVP ×2 (14:23→14:45)
[2024-11-09] MEDS: oxyCODONE 5 mg IR Tab/Cap PO (14:59)
[2024-11-09] MEDS: diphenhydrAMINE 50 mg/mL SDV 1mL 12.5 MG IVP (15:23)
--- NOTE | 2024-11-09 15:29 | SUR.PHASEII ---
15:20 MEDICATED FOR NAUSEA.
--- NOTE | 2024-11-09 16:09 | ANE.PACU2 ---
Inpatient post-anesthesia follow up: Airway intact: Yes Vital signs: Temperature 97.0 F Pulse Rate 77 Respiratory Rate 14 Blood Pressure 135/80 Pulse Oximetry 100 Oxygen Delivery Me thod Room Air Oxygen Flow Rate 10 Fraction of Inspir ed Oxygen Hydration adequate: Yes Nausea and vomiting: Yes (zofran and benadryl improved symptoms) Mental status: Baseline
== END 2024-11-09 16:35 | disposition home or self-care (01) ==
PROVIDERS: Student in an Organized Health Care Education/Training Program; PCP Family Medicine; Visit Provider Surgery
PROC: 0FT44ZZ Resection of Gallbladder, Percutaneous Endoscopic Approach (ICD-10-PCS; CPT 47562; principal; 2024-11-09 12:35)
DX: K80.10 Calculus of gallbladder with chronic cholecystitis without obstruction (principal); I10 Essential (primary) hypertension; E06.3 Autoimmune thyroiditis; J45.909 Unspecified asthma, uncomplicated; Z79.85 Long-term (current) use of injectable non-insulin antidiabetic drugs
CPT/HCPCS: 47562; 81025; 88304; A4216; J0690; J1200; J2405; J3490; J7030; J9999

== ENCOUNTER → 2024-12-16 15:46 | Outpatient (BNVA) | payer MEDICAID, SELFPAY | PROVIDERS: PCP Family Medicine; Visit Provider Family Medicine Adult Medicine | DX: N39.0 Urinary tract infection, site not specified (principal); A49.9 Bacterial infection, unspecified | CPT/HCPCS: 81000 ==

== ENCOUNTER 2025-02-23 11:04 | Outpatient (CLI) | payer MEDICAID, SELFPAY ==
--- NOTE | 2025-02-23 11:10 | XR_ITS ---
WS: [id number] XR sacrum coccyx min 2V [id number] REASON FOR EXAM: pain to tailbone FINDINGS: Sacroiliac joints are unremarkable. Benign bone island in the right sacral wing. No fracture of the sacrum. Coccyx is intact without fracture or dislocation. XR/XR sacrum coccyx min 2V [id number] IMPRESSION: No significant abnormality.
== END 2025-02-23 11:05 | disposition home or self-care (01) ==
PROVIDERS: PCP Family Medicine; Visit Provider Emergency Medicine
DX: M53.3 Sacrococcygeal disorders, not elsewhere classified (principal)
CPT/HCPCS: 72220

== ENCOUNTER → 2025-03-09 15:12 | Outpatient (BNVA) | payer MEDICAID, SELFPAY | PROVIDERS: PCP Family Medicine; Visit Provider Nurse Practitioner | DX: J02.9 Acute pharyngitis, unspecified (principal) | CPT/HCPCS: 87070; 87071; 87880 ==

== ENCOUNTER → 2025-03-22 15:36 | Outpatient (BNVA) | payer MEDICAID, SELFPAY | PROVIDERS: PCP Family Medicine; Visit Provider Family Medicine | DX: E06.3 Autoimmune thyroiditis (principal); Z86.39 Personal history of other endocrine, nutritional and metabolic disease | CPT/HCPCS: 84439; 84443; 86376 ==

== ENCOUNTER 2025-04-04 07:24 | Outpatient (CLI) | payer MEDICAID, SELFPAY ==
--- NOTE | 2025-04-04 07:30 | USR_ITS ---
PROCEDURE INFORMATION: Exam: US Soft Tissue Head and Neck, Thyroid Exam date and time: 04/04/2025 7:52 AM Age: 39 years old Clinical indication: Other: Enlarged R sided thyroid TECHNIQUE: Imaging protocol: Real-time ultrasound scan of the neck with image documentation. Exam focused on the thyroid. COMPARISON: US thyroid [id number] 04/20/2024 9:33 AM FINDINGS: Right thyroid lobe: The right lobe measures 2.7 x 2.5 x 6.5 cm. Right lobe remains heterogeneous in echogenicity. Right lobe nodule 1: Mid, 1.6 x 0.8 x 1.0 cm, previously 1.6 x 0.7 x 1.5 cm, completely cystic, TR 1. Right lobe nodule 2: Mid, 10 x 9 x 13 mm, previously 10 x 10 x 9 mm, solid, isoechoic, wider than tall, no calcifications, TR 3. Right lobe nodule 3: Inferior, 11 x 9 x 14 mm, previously 12 x 8 x 8 mm, solid, isoechoic, wider than tall, no calcifications, TR 3. Left thyroid lobe: The left lobe measures 6 x 2.2 x 2.2 cm. The left lobe remains moderately heterogeneous. No left lobe nodules. Isthmus: The isthmus measures 5 mm. Lymph nodes: Nonspecific right cervical chain lymph nodes identified, measuring less than 5 mm in short axis dimension. US/US thyroid [id number] IMPRESSION: 1. No significant interval change in right lobe thyroid nodules, requiring no follow-up. 2. Diffuse thyroid heterogeneity which can relate to a multinodular gland or thyroiditis.
== END 2025-04-04 07:25 | disposition home or self-care (01) ==
LOC: RAD 07:24
PROVIDERS: PCP Family Medicine; Visit Provider Family Medicine
DX: E06.3 Autoimmune thyroiditis (principal)
CPT/HCPCS: 76536